=== PATIENT | female | born 1975 | race Caucasian/White ===

== ENCOUNTER 2017-10-17 08:16 | Outpatient (CLI) | payer OTHER | END 2017-10-17 08:17 | disposition home or self-care (01) | LOC: BICMAMMO 08:16 | PROVIDERS: ATTEND Obstetrics & Gynecology | DX: Z12.31 Encounter for screening mammogram for malignant neoplasm of breast (principal) | CPT/HCPCS: 77063; 77067 ==

== ENCOUNTER 2023-03-20 08:21 | Outpatient (CLI) | payer BC ==
[2023-03-20 09:17] LABS: #Eosinphils 0.1 10x3/uL (0.0-0.5); #Monocytes 0.6 10x3/uL (0.0-1.1); #Neutrophils 5.1 10x3/uL (1.5-8.4); %Basophils 0.5 % (0.0-2.0); %Eosinophils 1.5 % (0.0-6.0); %Monocytes 7.5 % (0.0-10.0); %Neutrophils 62.3 % (40.0-75.0); Hematocrit 40.2 % (34.9-44.5); Hemoglobin 13.6 g/dL (12.0-15.5); Mean Corpuscular HGB CONC 33.8 g/dL (32.0-36.0); Mean Corpuscular Hemoglobin 31.1 pg (27.0-33.0); Mean Platelet Volume 9.2 fl (7.4-10.4); Platelet Count 322 10x3/uL (150-450); RBC Distribution Width 12.7 % (11.5-14.5); Red Blood Cell (RBC) Count 4.37 10x6/uL (3.90-5.03); White Blood Cell (WBC) Count 8.2 10x3/uL (3.5-10.5)
[2023-03-20 09:59] LABS: Anion Gap 14 mmol/L (10-20); BUN (Urea Nitrogen) 21 mg/dL (7.0-18.7); Calc. Creatinine Clearance 0 mL/min (70-130); Calcium 9.9 mg/dL (7.8-10.44); Carbon Dioxide 24 mmol/L (22-29); Chloride 105 mmol/L (98-107); Estimated GFR 87; Glucose 87 mg/dL (70-105); Potassium 4.6 mmol/L (3.5-5.1); Sodium 138 mmol/L (136-145)
== END 2023-03-20 08:22 | disposition home or self-care (01) ==
LOC: LABBT 08:21
PROVIDERS: ATTEND Surgery
DX: Z01.812 Encounter for preprocedural laboratory examination (principal); K42.9 Umbilical hernia without obstruction or gangrene
CPT/HCPCS: 80048; 85025

== ENCOUNTER 2023-03-25 08:18 | Day surgery (SDC) | payer BC ==
[2023-03-20 08:42] VITALS: BMI 23.7
[2023-03-25] MEDS ORDERED: EPINEPHrine 1 MG/ML AMP ONE (10:17)
[2023-03-25] MEDS ORDERED: Bupivacaine 0.25% HCL 30 ML VIAL ONE (10:17)
[2023-03-25] MEDS ORDERED: fentaNYL PF 100 MCG/2 ML SYRINGE ONE ×2 (10:26)
[2023-03-25] MEDS ORDERED: Propofol 500 MG/50 ML VIAL ONE (10:26)
[2023-03-25] MEDS ORDERED: Sodium Chloride 0.9% 100 ML ONE (10:27)
[2023-03-25] MEDS ORDERED: CEFAZOLIN 2 GM VIAL ONE (10:27)
[2023-03-25] MEDS ORDERED: Ketorolac Tromethamine 30 MG/ML VIAL ONE (10:43)
[2023-03-25] MEDS ORDERED: Dexamethasone 20 MG/5 ML VIAL ONE (10:43)
[2023-03-25] MEDS ORDERED: PROPOFOL 200 MG/20 ML VIAL ONE (10:43)
[2023-03-25] MEDS ORDERED: Ondansetron PF 4 MG/2 ML Vial ONE (10:43)
[2023-03-25] MEDS ORDERED: Lidocaine 1% PF 5 ML VIAL ONE ×2 (10:43)
== END 2023-03-25 13:45 | disposition home or self-care (01) ==
LOC: SDC 08:18
PROVIDERS: ATTEND Surgery
PROC: 0WUF0JZ Supplement Abdominal Wall with Synthetic Substitute, Open Approach (ICD-10-PCS; principal; 2023-03-25)
DX: K42.9 Umbilical hernia without obstruction or gangrene (principal); M50.20 Other cervical disc displacement, unspecified cervical region; E03.9 Hypothyroidism, unspecified; E55.9 Vitamin D deficiency, unspecified; D50.9 Iron deficiency anemia, unspecified; Z98.890 Other specified postprocedural states; Z79.899 Other long term (current) drug therapy
CPT/HCPCS: C1889; J0171; J1100; J1885; J2405; J2704; J3490; S0020